=== PATIENT | female | born 1995 | race Asian ===

== ENCOUNTER 2016-06-18 21:40 | Emergency (ER) | payer OTHER ==
[~2016-06-18] VITALS: Ht 160 cm; Wt 47.8 kg
[2016-06-18 21:55] VITALS: TEMP 36.9; Ht 160 cm; Wt 47.8 kg
--- NOTE | 2016-06-18 23:03 | DIAGNOSTIC IMAGING REPORT ---
SACRUM COCCYX MIN 2 VIEWS CLINICAL HISTORY: Fell, tailbone pain COMPARISON STUDY: No previous studies for comparison. FINDINGS: The sacroiliac joints and symphysis pubis are intact. No acute fracture of the sacrum or coccyx is identified. IMPRESSION: No acute fracture of the sacrum or coccyx identified by radiography. Electronically signed by: Adam Da Silva M.D. 06/18/2016 11:02 PM Dictated Date/Time: 06/18/2016 11:02 PM
--- NOTE | 2016-06-18 23:31 | EMERGENCY ROOM VISIT NOTE ---
History First contact with patient: 22:12 Chief Complaint: FALL Stated Complaint: HURT TAILBONE History of Present Illness The patient is a 20 year old female who presents to the Emergency Room via private vehicle with complaints of "hurt tailbone". The patient states that she fell earlier today around 5 or 6 PM. She states that she was participating in activity, when she fell backwards and struck her tailbone off of the ground. She has had persistent tailbone pain that she rates as a 5/10 with movement and 2/10 with rest. She notes that since the event her pain has been improving. She denies any lower extremity weakness, bowel or bladder incontinence or any numbness or tingling in the genital region. She denies any abdominal pain. Review of Systems A complete 6-point Review of Systems was discussed with the patient, with pertinent positives and negatives listed in the History of Present Illness. All remaining Review of Systems questions can be considered negative unless otherwise specified. Past Medical/Surgical History No pertinent past medical history. Family History No pertinent family history. Social History Smoking Status: Never Smoker Social History: Patient lives with roommates. Current/Historical Medications No Active Prescriptions or Reported Meds Allergies Coded Allergies: No Known Allergies (Unverified , 06/18/16) Physical Exam Vital Signs Date Time Temp Pulse Resp B/P Pulse Ox O2 Delivery O2 Flow Rate FiO2 06/18/16 23:35 91 18 107/82 99 06/18/16 21:55 36.9 104 18 107/72 98 Room Air Physical Exam VITAL SIGNS - Vital signs and nursing notes were reviewed. Afebrile, normotensive, slowly tachycardic at a rate of 104 bpm and saturating well on room air 98%. GENERAL -20-year-old female appearing her stated age who is in no acute distress. Communicates well with provider and answers questions appropriately. SKIN - Without rashes. No petechial rashes. HEAD - NC/AT. EYES - Sclera anicteric. Palpebral conjunctiva pink and moist with no injection noted. EARS - No deformities of external structures noted on gross examination bilaterally. NOSE - Midline and without cyanosis. No epistaxis or purulent drainage noted. MOUTH/OROPHARYNX - Without perioral cyanosis. Buccal mucosa pink and moist and without leukoplakia. Tongue midline with equal elevation of palate bilaterally. No tonsillar hypertrophy, erythema, or exudates noted. No dentition noted. NECK - Neck with FROM. No C-spine, thoracic or lumbar spinous processes tenderness. MUSCULOSKELETAL: There is pinpoint tenderness overlying the inferior coccyx region. No other tenderness appreciated. LUNGS - Chest wall symmetric without accessory muscle use, intercostals retractions, or central cyanosis. Normal vesicular breath sounds CTA B/L. No wheezes, rales, or rhonchi appreciated. CARDIAC - RRR with S1/S2. No murmur, rubs, or gallops appreciated. ABDOMEN - Abdominal contour without pulsations or visible masses. BS normoactive all four quadrants. No tenderness, palpable masses, hepatosplenomegaly, or ascites noted. EXTREMITIES - No clubbing or peripheral cyanosis. No pretibial edema present. No tenderness to palpation of the extremity. +5/5 strength noted in UE/LE bilaterally. Medical Decision & Procedures ER Provider Diagnostic Interpretation: SACRUM COCCYX MIN 2 VIEWS CLINICAL HISTORY: Fell, tailbone pain COMPARISON STUDY: No previous studies for comparison. FINDINGS: The sacroiliac joints and symphysis pubis are intact. No acute fracture of the sacrum or coccyx is identified. IMPRESSION: No acute fracture of the sacrum or coccyx identified by radiography. Electronically signed by: Adam Da Silva M.D. 06/18/2016 11:02 PM Dictated Date/Time: 06/18/2016 11:02 PM Medical Decision Patient was seen and evaluated as above. After obtaining a thorough history and physical examination radiographs were obtained the affected region. Patient denied chance of . Radiograph results as above. No acute fractures identified. There is no other evidence of trauma. No evidence of intraoral injury. Patient's pain is improving since the fall. Patient was educated upon management of the pain, to include [id number] medication such as Tylenol or ibuprofen. She is not to exceed dosage and on the bottle. She was also educated upon ways to improve the pain, such as sitting on soft objects swelling class. She was educated upon management, had questions about to discharge and was discharged home in good condition. In the evaluation and treatment of this patient the following differential diagnoses were entertained: Intraorgan injury, sacrum fracture, coccyx fracture , contusion, among others. Impression Primary Impression: Fall Additional Impression: Tailbone injury Departure Information Dispostion Home / Self-Care Condition GOOD Prescriptions No Active Prescriptions or Reported Meds Referrals [facility] (PCP) Patient Instructions My [facility] Additional Instructions You have been treated in the Emergency Department for your tailbone injury. For pain control, you can use the following [id number] medicines : Tylenol (Acetaminophen) and Motrin (Ibuprofen). Please take these as directed on the bottle. Please do not take more than what is directed on the bottle. If this is an acute injury, ice can be applied to the area of pain for the first 3 days to help decrease pain and inflammation. After the first 3 days, a heating pad can be used over the area for continued soothing relief. You should schedule a follow-up appointment in 2-3 days with your Primary Care Provider for further evaluation and treatment of your back pain. ([facility]) Return to the Emergency Department if your current symptoms worsen despite treatment course outlined above, or if you develop any of the following symptoms : intractable pain despite aforementioned treatment course, loss of control of your bowel or bladder, numbness or tingling in your groin, or development of a fever. Please return to the emergency department with any new/concerning symptoms. Problem Qualifiers
[2016-06-18 23:35] VITALS: BP 107/82; PULSE 91; O2SAT 99
== END 2016-06-18 23:36 | disposition home or self-care (01) ==
LOC: C.EDB 21:43 → C.EDD 23:36
DX: S39.82XA Other specified injuries of lower back, initial encounter (principal); W18.30XA Fall on same level, unspecified, initial encounter; Y93.9 Activity, unspecified; Y99.8 Other external cause status